=== PATIENT | female | born 1940 | race Caucasian/White ===

== ENCOUNTER 2017-08-21 13:36 | Emergency (ER) | payer OTHER ==
[~2017-08-21] VITALS: Ht 154.9 cm; Wt 76.3 kg
[~2017-08-21 13:36] MED LIST: ASPIR 8181 M1 PO; ASPIRIN81 M1 PO; ELAVIL100 MG PO; HYDROCHLOROTH12.5 M3 PO; LOPRESSOR100 M1 PO; TYLENOL WITH C1 EACH PO
[2017-08-21] MEDS ORDERED: PERCOCET 5/31 TABLET PO (14:50)
[2017-08-21 15:04] VITALS: BP 139/75
== END 2017-08-21 15:05 | disposition home or self-care (01) ==
LOC: EME 13:36
DX: M25.512 Pain in left shoulder (principal); W00.0XXA Fall on same level due to ice and snow, initial encounter; Z96.612 Presence of left artificial shoulder joint
CPT/HCPCS: 73030; 99281; 99283